=== PATIENT | male | born 1970 | race Hispanic/Latino ===

== ENCOUNTER 2018-10-22 09:50 | Day surgery (SDC) | payer BC ==
[2018-10-21 10:26] VITALS: BP 143/80
[2018-10-21 10:35] LABS: BASOPHILS % (AUTO) 0.8 % (0.0-5.0); EOSINOPHILS % (AUTO) 2.3 % (0.0-8.0); HEMATOCRIT 44.9 % (42-54); LYMPHOCYTES % (AUTO) 35.9 % (21.0-51.0); MEAN CORPUSCULAR HEMOGLOBIN 32.2 pg (27.0-33.0); MEAN CORPUSCULAR VOLUME 94.6 fL (79-99); MONOCYTES % (AUTO) 6.9 % (3.0-13.0); NEUTROPHILS % (AUTO) 54.1 % (40.0-77.0); PLATELET COUNT (AUTO) 252 K/uL (130-400); RED BLOOD CELL COUNT(AUTO) 4.74 MIL/uL (4.50-6.20); RED CELL DISTRIBUTION WIDTH 14.6 % (11.0-15.5); WHITE BLOOD COUNT (AUTO) 6.3 K/uL (4.8-10.8)
[2018-10-21 10:43] LABS: CREATININE 1.3 mg/dL (0.5-1.5); POTASSIUM 3.7 mmol/L (3.5-5.1)
[2018-10-21 10:47] LABS: APPEARANCE,URINE Clear (CLEAR); BILIRUBIN,URINE Negative (NEGATIVE); COLOR,URINE Yellow (YELLOW); GLUCOSE, URINE (UA) Negative (NEGATIVE); KETONES,URINE Negative (NEGATIVE); LEUKOCYTE ESTERASE ,URINE Negative (NEGATIVE); NITRATE,URINE Negative (NEGATIVE); OCCULT BLOOD,URINE Negative (NEGATIVE); PROTEIN,URINE Negative (NEGATIVE); UROBILINOGEN,URINE 0.2 mg/dL (0.2-1.0)
[~2018-10-22] VITALS: Ht 175.3 cm; Wt 110.7 kg
[2018-10-22] VITALS (13 sets, daily range): BP systolic 104–149; BP diastolic 64–90
[~2018-10-22 09:50] MED LIST: FLUT1BLS IH; LISI-613 PO; SERT50TA12 PO
[2018-10-22] MEDS ORDERED: LACTATED RINGERS 1000ML 1,000 ML IV ONE (09:57)
[2018-10-22] MEDS ORDERED: LIDOCAINE HCL 4% LTA SOL 4 ML VIAL ONE (10:04)
[2018-10-22] MEDS ORDERED: DEXAMETHASONE SOD PHOSPHATE 10MG/ML 1ML VIAL ONE (10:04)
[2018-10-22] MEDS ORDERED: ONDANSETRON HCL 4 MG/2 ML VIAL ONE (10:04)
[2018-10-22] MEDS ORDERED: LIDOCAINE PF 2% 5ML ABBOJECT ONE (10:04)
[2018-10-22] MEDS ORDERED: NEOSTIGMINE 5MG/5ML SYR IV ONE (10:05)
[2018-10-22] MEDS ORDERED: FENTANYL CITRATE PF 50 MCG/1 ML 2ML VIAL ONE (10:05)
[2018-10-22] MEDS ORDERED: GLYCOPYRROLATE 1 MG/5 ML SYRINGE ONE (10:05)
[2018-10-22] MEDS ORDERED: PROPOFOL 10 MG/ML 20ML VIAL IV ONE (10:05)
[2018-10-22] MEDS ORDERED: MIDAZOLAM HCL 1 MG/ML 2ML VIAL ONE (10:05)
[2018-10-22] MEDS ORDERED: BUPIVACAINE/PF 0.25% 30ML VIAL IJ ONE (10:15)
[2018-10-22] MEDS ORDERED: MORPHINE SULFATE 4 MG/1ML SYG ONE (10:23)
[2018-10-22] MEDS ORDERED: EPHEDRINE SULFATE 50 MG/ML AMPULE ONE (10:55)
[2018-10-22] MEDS ORDERED: MORPHINE SULFATE 2 MG/ML 1ML SYG ONE (11:42)
[2018-10-22] MEDS ORDERED: KETOROLAC TROMETHAMINE 30MG/ML ONE (11:42)
[2018-10-22] MEDS ORDERED: MEPERIDINE-PF 25 MG/ML SYG ONE (11:59)
== END 2018-10-22 13:20 | disposition home or self-care (01) ==
LOC: DAH 09:50
PROVIDERS: ATTEND Surgery
DX: K42.9 Umbilical hernia without obstruction or gangrene (principal); I10 Essential (primary) hypertension; F17.210 Nicotine dependence, cigarettes, uncomplicated; F12.90 Cannabis use, unspecified, uncomplicated; F14.11 Cocaine abuse, in remission; Z79.899 Other long term (current) drug therapy; Z72.89 Other problems related to lifestyle; Z83.3 Family history of diabetes mellitus; Z82.49 Family history of ischemic heart disease and other diseases of the circulatory system; Z98.890 Other specified postprocedural states
CPT/HCPCS: 36415; 49585; 80048; 81003; 85025; A4450; A4452; A4606; A4930; C1781; J1100; J1885; J2001; J2175; J2250; J2270; J2405; J2704; J2710; J3010; J3490 ×3; J7120

== ENCOUNTER 2019-05-17 18:33 | Emergency (ER) | payer BC, OTHER, SELFPAY ==
[2019-05-17] MEDS ORDERED: SODIUM CHLORIDE 0.9% 1000ML 1,000 ML IV ONE (19:11)
[2019-05-17 19:30] LABS: BASOPHILS % (AUTO) 0.3 % (0.0-5.0); EOSINOPHILS % (AUTO) 0.7 % (0.0-8.0); HEMATOCRIT 54.4 % (42-54); LYMPHOCYTES % (AUTO) 10.2 % (21.0-51.0); MEAN CORPUSCULAR HEMOGLOBIN 32.2 pg (27.0-33.0); MEAN CORPUSCULAR HGB CONC 34.2 g/dL (32.0-36.0); MEAN CORPUSCULAR VOLUME 94.1 fL (79-99); MONOCYTES % (AUTO) 5.3 % (3.0-13.0); NEUTROPHILS % (AUTO) 83.5 % (40.0-77.0); NUCLEATED RED BLOOD CELLS 0.1 % (0.0-0.19); PLATELET COUNT (AUTO) 208 K/uL (130-400); RED BLOOD CELL COUNT(AUTO) 5.78 MIL/uL (4.50-6.20); RED CELL DISTRIBUTION WIDTH 13.6 % (11.0-15.5)
[2019-05-17 19:34] LABS: APPEARANCE,URINE Clear (CLEAR); BILIRUBIN,URINE Negative (NEGATIVE); COLOR,URINE Yellow (YELLOW); GLUCOSE, URINE (UA) Negative (NEGATIVE); KETONES,URINE Negative (NEGATIVE); LEUKOCYTE ESTERASE ,URINE Negative (NEGATIVE); NITRATE,URINE Negative (NEGATIVE); OCCULT BLOOD,URINE Negative (NEGATIVE); PROTEIN,URINE Trace mg/dL (NEGATIVE)
[2019-05-17 19:35] LABS: POTASSIUM 4.3 mmol/L (3.5-5.1)
[2019-05-17 19:48] LABS: ALBUMIN 3.3 g/dL (3.5-5.0); BILIRUBIN,TOTAL 0.4 mg/dL (0.2-1.0); CREATININE 1.6 mg/dL (0.5-1.5); TOTAL PROTEIN, SERUM 6.5 g/dL (6.0-8.3)
[2019-05-17 20:06] LABS: BACTERIA,URINE Moderate /HPF (None Seen)
[2019-05-17 20:09] LABS: SQUAMOUS EPITHELIAL CELL,UR 0-2 /HPF (0-2)
[2019-05-17 20:15] LABS: RBC,URINE 0-1 /HPF (0-1); WBC,URINE 0-1 /HPF (0-1)
== END 2019-05-17 20:26 | disposition home or self-care (01) ==
LOC: EDH 18:33
DX: K52.9 Noninfective gastroenteritis and colitis, unspecified (principal); I10 Essential (primary) hypertension; F41.9 Anxiety disorder, unspecified; Z98.890 Other specified postprocedural states
CPT/HCPCS: 36415; 80053; 81001; 82550; 83690; 85025; 96360; 99285; J7030

== ENCOUNTER 2019-10-10 10:22 | Emergency (ER) | payer BC | END 2019-10-10 11:16 | disposition home or self-care (01) | LOC: EDH 10:22 | DX: S93.492A Sprain of other ligament of left ankle, initial encounter (principal); I10 Essential (primary) hypertension; F41.9 Anxiety disorder, unspecified; X50.1XXA Overexertion from prolonged static or awkward postures, initial encounter; Y93.89 Activity, other specified; Y92.69 Other specified industrial and construction area as the place of occurrence of the external cause; Y99.0 Civilian activity done for income or pay | CPT/HCPCS: 73610 ==

== ENCOUNTER → 2020-07-07 | Outpatient (CLI) | payer BC | END | disposition home or self-care (01) | LOC: RAH 13:28 | PROVIDERS: ATTEND Urology | DX: N50.3 Cyst of epididymis (principal) | CPT/HCPCS: 76870 ==

== ENCOUNTER → 2020-08-09 | Outpatient (CLI) | payer BC ==
[~2020-08-09] MED LIST changes: +ALLO100T PO; +COLC0.6T70 PO; +IBUP-1493 PO
== END | disposition home or self-care (01) ==
LOC: RAH 10:00
PROVIDERS: ATTEND Urology
DX: C61 Malignant neoplasm of prostate (principal); M19.071 Primary osteoarthritis, right ankle and foot
CPT/HCPCS: 78306; A9503

== ENCOUNTER → 2020-08-16 | Outpatient (CLI) | payer BC ==
[2020-08-09 14:29] LABS: BASOPHILS % (AUTO) 0.4 % (0.0-5.0); EOSINOPHILS % (AUTO) 2.2 % (0.0-8.0); HEMATOCRIT 40.7 % (42-54); LYMPHOCYTES % (AUTO) 25.8 % (21.0-51.0); MEAN CORPUSCULAR HEMOGLOBIN 31.4 pg (27.0-33.0); MEAN CORPUSCULAR HGB CONC 33.4 g/dL (32.0-36.0); NEUTROPHILS % (AUTO) 64.2 % (40.0-77.0); PLATELET COUNT (AUTO) 481 K/uL (130-400); RED BLOOD CELL COUNT(AUTO) 4.33 MIL/uL (4.50-6.20); RED CELL DISTRIBUTION WIDTH 12.8 % (11.0-15.5); WHITE BLOOD COUNT (AUTO) 8.3 K/uL (4.8-10.8)
[2020-08-09 14:59] LABS: CREATININE 1.6 mg/dL (0.5-1.5); POTASSIUM 4.1 mmol/L (3.5-5.1)
[~2020-08-16] MED LIST changes: +IOHEXOL-350 75 ML VIAL IV ONE
== END | disposition home or self-care (01) ==
LOC: RAH 09:54
PROVIDERS: ATTEND Urology
DX: C61 Malignant neoplasm of prostate (principal)
CPT/HCPCS: 36415; 74178; 80048; 85025; Q9967

== ENCOUNTER 2021-09-01 19:49 | Emergency (ER) | payer BC ==
[~2021-09-01] VITALS: Ht 172.7 cm; Wt 108.9 kg
[~2021-09-01 19:49] MED LIST changes: -COLC0.6T70 PO; +COLC0.6T73 PO; -IOHEXOL-350 75 ML VIAL IV ONE; -LISI-613 PO; +LISI20TA24 PO; +SERT-439 PO; -SERT50TA12 PO
[2021-09-01 20:57] LABS: BASOPHILS % (AUTO) 0.2 % (0.0-5.0); EOSINOPHILS % (AUTO) 1.5 % (0.0-8.0); HEMATOCRIT 42.1 % (42-54); LYMPHOCYTES % (AUTO) 22.6 % (21.0-51.0); MEAN CORPUSCULAR HEMOGLOBIN 31.5 pg (27.0-33.0); MEAN CORPUSCULAR HGB CONC 34.2 g/dL (32.0-36.0); MEAN CORPUSCULAR VOLUME 92.1 fL (79-99); MONOCYTES % (AUTO) 7.6 % (3.0-13.0); NEUTROPHILS % (AUTO) 67.9 % (40.0-77.0); PLATELET COUNT (AUTO) 260 K/uL (130-400); RED BLOOD CELL COUNT(AUTO) 4.57 MIL/uL (4.50-6.20); RED CELL DISTRIBUTION WIDTH 13.7 % (11.0-15.5); WHITE BLOOD COUNT (AUTO) 9.2 K/uL (4.8-10.8)
[2021-09-01] MEDS: KETOROLAC 30MG VIAL (30MG/ML) IV ONE (21:07)
[2021-09-01 21:16] LABS: CREATININE 1.4 mg/dL (0.5-1.5); POTASSIUM 3.8 mmol/L (3.5-5.1)
[2021-09-01 21:19] LABS: APPEARANCE,URINE Clear (CLEAR); BILIRUBIN,URINE Negative (NEGATIVE); COLOR,URINE Yellow (YELLOW); GLUCOSE, URINE (UA) Negative (NEGATIVE); KETONES,URINE Negative (NEGATIVE); LEUKOCYTE ESTERASE ,URINE Negative (NEGATIVE); NITRATE,URINE Negative (NEGATIVE); OCCULT BLOOD,URINE Negative (NEGATIVE); PROTEIN,URINE Negative (NEGATIVE); UROBILINOGEN,URINE 0.2 mg/dL (0.2-1.0)
[2021-09-01 21:21] LABS: ALBUMIN 3.8 g/dL (3.5-5.0); BILIRUBIN,TOTAL 0.6 mg/dL (0.2-1.0); TOTAL PROTEIN, SERUM 7.6 g/dL (6.0-8.3)
[2021-09-01] MEDS ORDERED: IOHEXOL 350 MG/ML 100ML INFUS..BTL IV ONE (22:16)
[2021-09-02] MEDS ORDERED: IBUP-2077 PO (00:19)
[2021-09-02] MEDS ORDERED: CYCL10TA16 PO (00:19)
[2021-09-02 00:29] VITALS: BP 136/70
== END 2021-09-02 00:27 | disposition home or self-care (01) ==
LOC: EDH 19:49
DX: R07.89 Other chest pain (principal); M25.511 Pain in right shoulder; R05.9 Cough, unspecified; I10 Essential (primary) hypertension; F32.A Depression, unspecified; Z98.890 Other specified postprocedural states; Z79.1 Long term (current) use of non-steroidal anti-inflammatories (NSAID); Z79.51 Long term (current) use of inhaled steroids; Z79.899 Other long term (current) drug therapy
CPT/HCPCS: 36415; 71045; 71275; 73030; 80053; 81003; 84484; 85025; 85378; 93005; 96374; 99284; J1885; Q9967

== ENCOUNTER 2021-10-29 15:30 | Emergency (ER) | payer BC ==
[~2021-10-29] VITALS: Ht 172.7 cm; Wt 112.5 kg
[~2021-10-29 15:30] MED LIST changes: +CYCL10TA16 PO; +IBUP-2077 PO
[2021-10-29 16:26] VITALS: BP 128/79
== END 2021-10-29 20:53 | disposition left against medical advice (07) ==
LOC: EDH 15:30
DX: M25.511 Pain in right shoulder (principal); Z53.21 Procedure and treatment not carried out due to patient leaving prior to being seen by health care provider

== ENCOUNTER 2022-03-09 09:06 | Emergency (ER) | payer BC ==
[~2022-03-09] VITALS: Ht 172.7 cm; Wt 112.5 kg
[2022-03-09] MEDS ORDERED: HYDROCODONE/ACETAMINOPHEN 5/325 MG TAB PO ONE (10:00)
[2022-03-09] MEDS ORDERED: KETOROLAC 15MG/ML VIAL (15MG/ML) IM ONE (10:00)
[2022-03-09 10:06] LABS: BASOPHILS % (AUTO) 0.1 % (0.0-5.0); EOSINOPHILS % (AUTO) 2.6 % (0.0-8.0); HEMATOCRIT 35.8 % (42-54); LYMPHOCYTES % (AUTO) 11.4 % (21.0-51.0); MEAN CORPUSCULAR HEMOGLOBIN 32.6 pg (27.0-33.0); MEAN CORPUSCULAR HGB CONC 33.8 g/dL (32.0-36.0); MEAN CORPUSCULAR VOLUME 96.5 fL (79-99); MONOCYTES % (AUTO) 10.7 % (3.0-13.0); NEUTROPHILS % (AUTO) 74.4 % (40.0-77.0); PLATELET COUNT (AUTO) 254 K/uL (130-400); RED BLOOD CELL COUNT(AUTO) 3.71 MIL/uL (4.50-6.20); RED CELL DISTRIBUTION WIDTH 13.4 % (11.0-15.5); WHITE BLOOD COUNT (AUTO) 7.2 K/uL (4.8-10.8)
[2022-03-09 10:17] LABS: ALANINE AMINOTRANSFERASE 38 U/L (12-78); ALBUMIN 3.7 g/dL (3.5-5.0); ASPARTATE AMINOTRANSFERASE 19 U/L (10-37); BILIRUBIN,TOTAL 0.5 mg/dL (0.2-1.0); CARBON DIOXIDE 31 mmol/L (21-32); CHLORIDE 105 mmol/L (101-111); CREATININE 1.1 mg/dL (0.5-1.5); GLOMERULAR FILTR. RATE CALC 75 mL/min (>60); GLUCOSE,RANDOM 127 mg/dL (70-105); POTASSIUM 4.2 mmol/L (3.5-5.1); SODIUM SERUM 142 mmol/L (136-145); TOTAL PROTEIN, SERUM 7.1 g/dL (6.0-8.3); UREA NITROGEN, BLOOD 14 mg/dL (7-18)
[2022-03-09 10:19] LABS: CRP QUANTITATIVE < 2.00 mg/L (0.00-9.0)
[2022-03-09 11:05] LABS: ERYTHROCYTE SEDIMENTATION RATE 34 MM/HR (0-20)
[2022-03-09] MEDS ORDERED: IBUP-2077 PO (11:21)
[2022-03-09] MEDS ORDERED: ACET1TAB97 PO (11:21)
[2022-03-09] MEDS ORDERED: SOLU-MEDROL 125MG VIAL IVP ONE (11:30)
[2022-03-09 11:40] VITALS: BP 136/76
== END 2022-03-09 11:54 | disposition home or self-care (01) ==
LOC: EDH 09:06
DX: M25.462 Effusion, left knee (principal); M06.9 Rheumatoid arthritis, unspecified; F41.9 Anxiety disorder, unspecified; E78.00 Pure hypercholesterolemia, unspecified; I10 Essential (primary) hypertension; Z98.890 Other specified postprocedural states; Z79.899 Other long term (current) drug therapy
CPT/HCPCS: 36415; 73562; 80053; 84145; 85025; 85651; 86140; 96372; 96374; 99284; J1885; J2930

== ENCOUNTER 2022-08-26 19:17 | Emergency (ER) | payer BC ==
[~2022-08-26] VITALS: Ht 172.7 cm; Wt 116.1 kg
[~2022-08-26 19:17] MED LIST changes: +ACET1TAB97 PO
[2022-08-26 19:32] VITALS: BP 124/72
[2022-08-26] MEDS ORDERED: KETOROLAC 60 MG VIAL (30MG/ML) IM ONE (20:00)
[2022-08-26] MEDS ORDERED: HYDROCODONE/ACETAMINOPHEN 10/325 MG TAB PO ONE (20:00)
[2022-08-26] MEDS ORDERED: CYCLOBENZAPRINE HCL 10 MG TABLET PO ONE (20:00)
[2022-08-26] MEDS ORDERED: CYCL10TA16 PO (20:04)
[2022-08-26] MEDS ORDERED: NAPR-1180 PO (20:04)
== END 2022-08-26 20:17 | disposition home or self-care (01) ==
LOC: EDH 19:17
DX: S40.011A Contusion of right shoulder, initial encounter (principal); S50.01XA Contusion of right elbow, initial encounter; E78.00 Pure hypercholesterolemia, unspecified; I10 Essential (primary) hypertension; M19.90 Unspecified osteoarthritis, unspecified site; Z79.1 Long term (current) use of non-steroidal anti-inflammatories (NSAID); Z79.51 Long term (current) use of inhaled steroids; E66.9 Obesity, unspecified; Z68.38 Body mass index [BMI] 38.0-38.9, adult; W11.XXXA Fall on and from ladder, initial encounter; Y93.89 Activity, other specified; Y92.89 Other specified places as the place of occurrence of the external cause; Y99.8 Other external cause status
CPT/HCPCS: 99284; 73080; 73030; 96372; J1885